=== PATIENT | female | born 1985 | race Caucasian/White ===

== ENCOUNTER 2018-08-24 07:26 | Day surgery (SDC) | payer OTHER ==
[~2018-08-24] VITALS: Ht 160 cm; Wt 90.7 kg
[2018-08-24 07:53] VITALS: BP 125/74
[2018-08-24 18:04] VITALS: BP 136/95
== END 2018-08-24 18:45 | disposition home or self-care (01) ==
LOC: DS 07:26 → OR 12:30 → DS 12:30
DX: C50.911 Malignant neoplasm of unspecified site of right female breast (principal); E78.00 Pure hypercholesterolemia, unspecified; E03.9 Hypothyroidism, unspecified; Z79.899 Other long term (current) drug therapy; Z79.1 Long term (current) use of non-steroidal anti-inflammatories (NSAID); Z98.890 Other specified postprocedural states
CPT/HCPCS: J0690; J1170; J2405; J2704; J3010; J3490; J7120; Q9968